=== PATIENT | female | born 1995 | race Caucasian/White ===

== ENCOUNTER 2023-01-28 10:23 | Observation (INO) | payer MEDICAID ==
[~2023-01-28] VITALS: Ht 162.6 cm; Wt 74.4 kg
[2023-01-28 10:45] VITALS: BP 138/87; PULSE 131; RESP 20; TEMP 97.7; O2SAT 98
[2023-01-28 12:54] LABS: BASOPHILS % (AUTO) 0.3 % (0.0-2.0); EOSINOPHILS % (AUTO) 0.4 % (0.0-4.0); HEMATOCRIT 35.5 % (36-48); LYMPHOCYTES # (AUTO) 3.1 K/uL (2.5-16.5); LYMPHOCYTES % (AUTO) 36.2 % (20.5-51.1); MEAN CORPUSCULAR HEMOGLOBIN 29 pg (27-31); MEAN CORPUSCULAR HGB CONC 34 g/dL (33-37); MEAN CORPUSCULAR VOLUME 86.3 fL (80-94); MONOCYTES # (AUTO) 0.6 K/uL (0.8-1.0); MONOCYTES % (AUTO) 6.9 % (1.7-9.3); NEUTROPHILS # (AUTO) 4.7 K/uL (1.8-7.7); NEUTROPHILS % (AUTO) 56.2 % (42.2-75.2); PLATELET COUNT (AUTO) 241 K/uL (140-450); RED BLOOD CELL COUNT(AUTO) 4.12 MIL/uL (4.20-5.40); RED CELL DISTRIBUTION WIDTH 13.3 % (11.6-13.7); WHITE BLOOD COUNT (AUTO) 8.4 K/uL (4.8-10.8)
[2023-01-28 13:12] LABS: INR 0.97 (0.8-1.2); PROTHROMBIN TIME 10.2 secs (10.8-13.4)
[2023-01-28 13:34] LABS: ALANINE AMINOTRANSFERASE 86 U/L (12-78); ALBUMIN 3.1 g/dL (3.4-5.0); ALKALINE PHOSPHATASE 103 U/L (50-136); ANION GAP 10.9 (8-16); ASPARTATE AMINOTRANSFERASE 64 U/L (15-37); CALCIUM 8.4 mg/dL (8.5-10.1); CARBON DIOXIDE 28.6 mmol/L (21-32); CHLORIDE 102 mmol/L (98-107); CREATININE 0.7 mg/dL (0.6-1.3); GFR ARICAN-AMERICAN 129 mL/min (>90); GFR NON ARICAN-AMERICAN 107 mL/min (>90); GLUCOSE 107 mg/dL (74-106); SODIUM SERUM 139 mmol/L (136-145); THYROID STIMULATING HORMONE 1.38 uIU/mL (0.34-3.74); TOTAL BILIRUBIN 0.3 mg/dL (0.0-1.0); TOTAL PROTEIN, SERUM 8.4 g/dL (6.4-8.2); UREA NITROGEN, BLOOD 12 mg/dL (7-18)
[2023-01-28 13:38] LABS: POTASSIUM 2.5 mmol/L (3.5-5.1)
[2023-01-28 13:45] LABS: AMPHETAMINE, URINE NEGATIVE ng/ml (NEG <=1000); BENZODIAZEPINE, URINE NEGATIVE ng/mL (NEG <=200); CANNABINOID, URINE NEGATIVE ng/mL (NEG <=50); COCAINE, URINE NEGATIVE ng/mL (NEG <=300)
[2023-01-28 13:46] LABS: OPIATE, URINE NEGATIVE ng/mL (NEG <=2000); PHENCYCLIDINE SCREEN,URINE NEGATIVE ng/mL (NEG <=25)
[2023-01-28 13:55] LABS: BARBITURATE, URINE NEGATIVE ng/ml (NEG <=200)
[2023-01-28] MEDS ORDERED: KCL 20 MEQ IN 100 mL PREMIX 100 ML IV ONE ×2 (14:10→17:17)
[2023-01-28] MEDS ORDERED: MAG SULF 2000 MG/WATER PREMIX 50 ML IV ONE ×2 (14:10→17:11)
[2023-01-28] MEDS ORDERED: POTASSIUM CHLORIDE 10 MEQ TABER PO ONE ×2 (14:10→17:07)
[2023-01-28] MEDS ORDERED: HYDROcodone/APAP 5/325 MG 1 TAB TAB PO PRN (23:30)
[2023-01-28] MEDS ORDERED: MAG SULF 2000 MG/WATER PREMIX 50 ML IV PRN (23:30)
[2023-01-28] MEDS ORDERED: KCL 20 MEQ IN 100 mL PREMIX 200 ML IV PRN (23:30)
[2023-01-28] MEDS ORDERED: MAGNESIUM OXIDE 400 MG TAB PO PRN (23:30)
[2023-01-28] MEDS ORDERED: POTASSIUM CHLORIDE 10 MEQ TABER PO PRN (23:30)
[2023-01-28] MEDS ORDERED: ONDANSETRON 4 MG/2 ML VIAL IVP PRN (23:30)
[2023-01-28] MEDS ORDERED: ACETAMINOPHEN 325 MG TAB PO PRN (23:30)
[2023-01-28] MEDS ORDERED: MORPHINE SULFATE 2 MG/ML SYR IVP PRN (23:30)
[2023-01-29 07:14] LABS: ALBUMIN 2.5 g/dL (3.4-5.0); ANION GAP 13.4 (8-16); CALCIUM 8.4 mg/dL (8.5-10.1); CARBON DIOXIDE 26.8 mmol/L (21-32); CREATININE 0.6 mg/dL (0.6-1.3); MAGNESIUM 2.5 mg/dL (1.8-2.4); POTASSIUM 3.2 mmol/L (3.5-5.1); TOTAL BILIRUBIN 0.2 mg/dL (0.0-1.0); TOTAL PROTEIN, SERUM 7.2 g/dL (6.4-8.2)
[2023-01-29 07:18] LABS: HEMATOCRIT 31.9 % (36-48); MEAN CORPUSCULAR HEMOGLOBIN 30 pg (27-31); MEAN CORPUSCULAR HGB CONC 35 g/dL (33-37); MEAN CORPUSCULAR VOLUME 86.1 fL (80-94); PLATELET COUNT (AUTO) 237 K/uL (140-450); RED CELL DISTRIBUTION WIDTH 13.3 % (11.6-13.7); WHITE BLOOD COUNT (AUTO) 8.5 K/uL (4.8-10.8)
[2023-01-29 08:00] VITALS: BP 124/83; PULSE 103; PULSE 107; RESP 18; TEMP 98.6; O2SAT 97
[2023-01-29 08:29] LABS: BASOPHILS % (MANUAL) 0 % (0-2); BLASTS, MANUAL % 0 % (0-0); EOSINOPHILS % (MANUAL) 1 % (0-4); LYMPHOCYTES % (MANUAL) 18 % (20-46); METAMYELOCYTES % 0 % (0-0); MONOCYTES % (MANUAL) 4 % (5-12); MYELOCYTES % 0 % (0-0); OTHER CELLS,MANUAL % 0 (0-0); PLATELET ESTIMATE PLATELET CLUMPS SEEN; PROMYELOCYTES % 0 % (0-0)
[2023-01-29 12:00] VITALS: BP 115/69; PULSE 85; RESP 18; TEMP 97.9; O2SAT 98
[2023-01-29] MEDS ORDERED: LOPERAMIDE 2 MG CAP PO PRN (12:35)
[2023-01-29] MEDS ORDERED: MELO10CA3 PO (13:24)
[2023-01-29] MEDS ORDERED: CYCL-711 PO (13:25)
== END 2023-01-29 15:50 | disposition home or self-care (01) ==
LOC: MED 10:23 → MTU 23:30
PROVIDERS: ADMIT Student in an Organized Health Care Education/Training Program; ATTEND Student in an Organized Health Care Education/Training Program
DX: G44.209 Tension-type headache, unspecified, not intractable (principal); I10 Essential (primary) hypertension; E87.6 Hypokalemia; E78.5 Hyperlipidemia, unspecified; E86.1 Hypovolemia; Z79.899 Other long term (current) drug therapy
CPT/HCPCS: 36415; 70450; 70496; 70498; 71045; 80053; 80305; 83735; 84443; 84484; 85025; 85610; 85730; 93005; 96365; 96366; 96368; 99285; G0378; J3475; J3480; Q9967